=== PATIENT | female | born 1985 | race Caucasian/White ===

== ENCOUNTER 2020-05-18 10:32 | Outpatient (REF) | payer BC, SELFPAY | END 2020-05-18 10:33 | disposition home or self-care (01) | LOC: HO.LAB 10:32 | PROVIDERS: Visit Provider Internal Medicine | DX: Z20.828 Contact with and (suspected) exposure to other viral communicable diseases (principal) | CPT/HCPCS: C9803; U0003 ==

== ENCOUNTER 2021-01-26 15:47 | Outpatient (REF) | payer BC, SELFPAY ==
--- NOTE | ~2021-01-26 | XR_ITS ---
EXAMINATION: XR SINUSES CLINICAL INFORMATION: Sinus pressure COMPARISON: None TECHNIQUE: 4 views of the paranasal sinuses were obtained. FINDINGS: Frontal, ethmoid and sphenoid sinuses appear clear. There is a moderate opacification of the right maxillary sinus and mild to moderate opacification of the left maxillary sinus with some air fluid levels. Sella turcica is normal not enlarged. XR/XR sinus min 3V IMPRESSION: Opacification of the bilateral maxillary sinuses is suspected. Remainder of the paranasal sinuses are clear.
== END 2021-01-26 15:48 | disposition home or self-care (01) ==
LOC: HO.XRAY 15:47
PROVIDERS: PCP Internal Medicine; Visit Provider Internal Medicine
DX: J34.89 Other specified disorders of nose and nasal sinuses (principal)
CPT/HCPCS: 70220

== ENCOUNTER 2021-06-23 12:01 | Outpatient (REF) | payer BC, SELFPAY ==
[2021-06-23 13:08] LABS: Influenza A PCR NEGATIVE (Negative); Influenza B PCR NEGATIVE (Negative); Resp Syncy Virus RNA Qual PCR NEGATIVE (Negative); SARS COV2 PCR INHOUSE NEGATIVE (Negative)
== END 2021-06-23 12:02 | disposition home or self-care (01) ==
LOC: HO.LNP 12:01
PROVIDERS: Visit Provider Internal Medicine
DX: Z20.822 Contact with and (suspected) exposure to COVID-19 (principal); R19.7 Diarrhea, unspecified; R11.10 Vomiting, unspecified
CPT/HCPCS: 0241U

== ENCOUNTER 2021-12-24 14:39 | Outpatient (REF) | payer BC, OTHER, SELFPAY ==
--- NOTE | ~2021-12-24 | XR_ITS ---
EXAMINATION: XR WRIST, RIGHT CLINICAL INFORMATION: Injury 12/11/2021 COMPARISON: None TECHNIQUE: PA, lateral, and oblique and scaphoid views of the right wrist. FINDINGS: The bones and soft tissues are normal. No fracture. Alignment is anatomic with normal joint spaces. No erosions or abnormal soft tissue calcifications. XR/XR wrist RT min 3V IMPRESSION: Normal right wrist.
== END 2021-12-24 14:40 | disposition home or self-care (01) ==
LOC: HO.XRAY 14:39
PROVIDERS: PCP Internal Medicine; Visit Provider Internal Medicine
DX: S69.91XA Unspecified injury of right wrist, hand and finger(s), initial encounter (principal); X58.XXXA Exposure to other specified factors, initial encounter; Y93.9 Activity, unspecified; Y92.9 Unspecified place or not applicable; Y99.9 Unspecified external cause status
CPT/HCPCS: 73110

== ENCOUNTER 2025-06-16 12:58 | Outpatient (REF) | payer BC, SELFPAY ==
[2025-06-16 14:19] LABS: MANUAL DIFF FLAG NO
[2025-06-16 14:57] LABS: Hematocrit 41.6 % (37.0-47.0); Hemoglobin 13.9 g/dl (12.0-16.0); Imm Gran Abs Auto 0.03 X10*3/uL (0.00-0.03); Imm Gran Pct Auto 0.5 % (0.0-0.4); Lymphocytes Absolute Auto 2.1 X10*3/uL (1.2-4.9); Mean Corpuscular HGB Conc 33.4 g/dl (31.0-35.0); Mean Corpuscular Hemoglobin 29.9 pg (27.0-33.0); Mean Corpuscular Volume 89.5 fL (80.0-98.0); NRBC Abs Auto 0.000 X10*3/uL (0.0-0.012); NRBC Pct Auto 0.0 /100WBC (0.0-0.2); Platelet Count 302 X10*3/uL (160-400); Red Blood Count 4.65 X10*6/uL (4.20-5.50); White Blood Count 5.7 X10*3/uL (4.8-10.8)
--- OUTSIDE RECORDS SUMMARY | 2025-06-16 15:46 | XMS_ITS | Data Portability ---
Author Organization [facility], [facility] [place] [facility] Address [address] [place] [address] Care Team Providers Care Top Polisher Name Role Phone [facility] ([facility]) Primary Care Provide r Assessment No assessment recorded. Plan of Treatment Reminders Order Date Submit Date Provider Name Organization Details Last Modified By Last Modified Time Details Appointments RECHE CK 15 2025 08:45A M Patricia zhang PA-C Not available Not available Not available Lab None recor ded. Referral None recor ded. Procedures None recor ded. Surgeries None recor ded. Imaging MRI, lumba r spine , w/o contr ast 2024 14:50: 10 025 Patricia zhang PA-C [facility] ([place] [facility]) [address], [place], [address], Not Available 06/09/2025 17:02:01 XR, lumba r spine , 2 view 2024 14:20: 00 025 Ptaricia zhang PA-C [facility] [address], [place], [address], Not Available 06/04/2025 14:27:17 MedicationOrde rs Medro l (Nader) 4 mg table ts in a dose pack 2024 14:50: 50 [facility] [address] [place] [address], [facility], Ph [phone] Patricia Garcia PA-C Not available 06/04/2025 15:06:25 Take 1 dose pk by oral route as directed for 6 days, for back pain. VaccineOrders None recor ded. Patient TargetsNo targets recorded. Patient InstructionsNo instructions recorded. Reason for Referral None Reported. Results Created Date Observation Date Name Description Value Unit Range Abnormal Flag Specimen Type Note LastModifiedBy Organization Detail LastModifiedTime 06/04/2025 06/04/2025 lumbar spine 2 view [email or web address]=ybVtDzmBM3aTlfCPy6f%6FXMdxWatiu0tugi%0Hh0ZUv3 awEbpJ1eZiPFacuYy8AjJLAtXjvXTW6bQyZYrea03y6075GL4IwragPOnazFpTjoHzP Not Available [facility] , [address] , [facility], , 06/04/2025 14:27:18 06/04/2025 06/04/2025 lumbar spine 2 view [email or web address]=vjXmMwpAW0dQmqRYi4s%7ALSdbYfiib3trsi%8Na6ADg8 dxGgdX4yTpAAlouWf8InSFFyRliVDF4bYsVMtwz34a5431NI6SlszoYTgrePeQakKpS Not Available [facility] , [address],[facility] [address] [place] , [address], , 06/04/2025 14:27:19 06/07/2025 06/07/2025 MR, lumbar spine (C-) CPT 78448 [facility] cession Number: [id number] Patient Name: JOB PAULINO Date of : 1985 Date of Exam: 06-07-2025 Referring Physician: Patricia Garcia [address], [address] [place] [address] Exam: MR Lumbar Spine (C-) CPT 98978 Room Description: [facility] 3.0T MRI Lumbar Spine W/O Contrast INDICATION: Reason For Exam: M54.50 - Low back pain, unspecified, , MRI Lumbar spine- r/o disc herniation, Rule Out: disc herniation L-spine - TECHNIQUE: Multiplanar, multisequence MRI of the lumbar spine was performed without contrast. COMPARISON: None FINDINGS: LOCALIZER: No additional findings on limited localizer images. NUMBERING: The study assumes 5 ppj-ote-phzimmt lumbar type vertebral bodies. ALIGNMENT, VERTEBRAE, MARROW, AND DISCS: Alignment is normal. Vertebral body heights are preserved. No suspicious marrow signal. Loss of intervertebral disc space height and disc desiccation noted at L5-S1 CONUS: The conus is normal in signal and contour, with normal level of termination at L1-L2. PARASPINAL TISSUES: The paraspinal soft tissues are unremarkable. DETAILED FINDINGS BY LEVEL: T12-L1: No significant canal stenosis or neural foraminal narrowing. L1-L2: No significant canal stenosis or neural foraminal narrowing. L2-L3: No significant canal stenosis or neural foraminal narrowing. L3-L4: No significant canal stenosis or neural foraminal narrowing. L4-L5: No significant canal stenosis or neural foraminal narrowing. L5-S1: Broad-based disc bulge with small central disc herniation and bilateral facet arthrosis causing minimal bilateral neural foramina narrowing without significant spinal canal stenosis. IMPRESSION: Minimal degenerative changes at L5-S1. Otherwise essentially unremarkable lumbar spine MRI WSN: [id number] Ordering Physician: Patricia Garcia Electronically Signed By: Candelario ortiz PA-C [facility] ([facility]) , [address] [place] [address] , [address], [place] , 06/09/2025 17:08:02 Result Notes Documentation Provider Name and Address Organization Details Recorded Time Xr, Lumbar Spine, 2 View : [email or web address]? Encrypted=plYdZavGA9sTebB Uv6g%7HADvfEmfdg4wxxn%2Fg 2NLy1frArsC9hElWMquuXi1Pg MRCdZhiUPW3mDfAWcbi65q893 3VL2FyggwABommEcIzlUyR Not Available [facility] 06/04/2025 14:27:18 Xr, Lumbar Spine, 2 View : [email or web address] Encrypted=gdLkCtdIA7vEsdS Uv6g%4KPRrcElmsd5mzpb%2Fg 4SZf0jnXpfD0aCqWYqamOr6Mc OTMbLohNJN6gAoVRlnu19k615 7WR4DxeikFTexdTmPxjShD Not Available [facility] 06/04/2025 14:27:19 Mri, Lumbar Spine, W/o Contrast : [facility] Accession Number: [id number] Patient Name: JOB PAULINO Date of : 1985 Date of Exam: 06-07-2025 Referring Physician: Patricia Garcia [address] [place], [place] [address] [address] Exam: MR Lumbar Spine (C-) CPT 32321 Room Description: [facility] 3.0T MRI Lumbar Spine W/O Contrast INDICATION: Reason For Exam: M54.50 - Low back pain, unspecified, , MRI Lumbar spine- r/o disc herniation, Rule Out: disc herniation L-spine - TECHNIQUE: Multiplanar, multisequence MRI of the lumbar spine was performed without contrast. COMPARISON: None FINDINGS: LOCALIZER: No additional findings on limited localizer images. NUMBERING: The study assumes 5 jjt-cnz-cyqgjec lumbar type vertebral bodies. ALIGNMENT, VERTEBRAE, MARROW, AND DISCS: Alignment is normal. Vertebral body heights are preserved. No suspicious marrow signal. Loss of intervertebral disc space height and disc desiccation noted at L5-S1 CONUS: The conus is normal in signal and contour, with normal level of termination at L1-L2. PARASPINAL TISSUES: The paraspinal soft tissues are unremarkable. DETAILED FINDINGS BY LEVEL: T12-L1: No significant canal stenosis or neural foraminal narrowing. L1-L2: No significant canal stenosis or neural foraminal narrowing. L2-L3: No significant canal stenosis or neural foraminal narrowing. L3-L4: No significant canal stenosis or neural foraminal narrowing. L4-L5: No significant canal stenosis or neural foraminal narrowing. L5-S1: Broad-based disc bulge with small central disc herniation and bilateral facet arthrosis causing minimal bilateral neural foramina narrowing without significant spinal canal stenosis. IMPRESSION: Minimal degenerative changes at L5-S1. Otherwise essentially unremarkable lumbar spine MRI WSN: [id number] Ordering Physician: Patricia Garcia Electronically Signed By: Candelario Ramirez PA-C [address], [place], [address], [facility] 06/09/2025 17:08:02 Problems Name Problem SNOMED Code Status Onset Date Resolution Date Notes Provider Name and Address Organization Details Recorded Time Lower back injury 133490775 Active 025 Patricia ortiz PA-C [address], [place], [address] , [facility] 5 12:07:27 Acute back pain with sciatica 100427852 Active 025 Patricia ortiz PA-C [address], [place], [address] , [facility] 5 12:07:38 Problem Notes None recorded. Medical Equipment None Reported. Allergies No known drug allergies Medications Name Authored On Sig Start Date Stop Date Status Note Indication Fill Status Repeat Number Dispense Quantity LastModified by Organization Details LastModified Time benzo natat e 200 mg capsu le 5 14:04:11 TAKE 1 CAPS ULE BY CORNELL Zhang TIME S POLLO Y FOR 7 DAYS active Not Available Not availab le 0 Not Available Not Available memo - External Data Service - prod 06/04/2025 14:04:11 cyclo benza edmundo 5 mg table t 5 14:04:11 TAKE 1 TABL ET BY CORNELL Zhang TIME S POLLO Y FOR MUSC LE SPAS M active Not Available Not availab le 0 Not Available Not Available memo - External Data Service - prod 06/04/2025 14:04:11 ibupr ofen 600 mg table t 5 14:04:11 TAKE 1 TABL ET BY MOUT H 4 TIME S POLLO Y FOR PAIN active Not Available Not availab le 0 Not Available Not Available memo - External Data Service - prod 06/04/2025 14:04:11 lidoc tricia 5 % topic al patch 14:04:11 APPL Y ONE PATC H TOPI CALL Y TO ALLYSSA VELARDE LDER . LEAV E ON FOR 12 HOUR S THEN MARK VE. MUST WAIT AT LEAS T 12 HOUR S BEFO RE APPL XU PATC H(ES ) AGAI N. active Not Available Not availab le 0 Not Available Not Available memo - External Data Service - prod 06/04/2025 14:04:11 Pain Relie tiff (acet amino phen) 500 mg table t 14:04:11 TAKE 2 TABL ETS BY MOUT H EVER Y 8 HOUR S NEED ED FOR PAIN active Not Available Not availab le 0 Not Available Not Available memo - External Data Service - prod 06/04/2025 14:04:11 Medro l (Nader) 4 mg table ts in a dose pack 14:50:50 Take 1 dose pk by oral rout e as dire cted for 6 days , for back pain . complet ed Acute low back pain Not availab le 0 Not Available Patricia Garcia PA-C [address] [facility] [address], [place], [address], [facility] 06/04/2025 15:06:25 Vitals Date Recorded Body height Body mass index (BMI) Body weight Provider Name and Address Organization Details Last Updated DateTime 06/04/2025 154.94 cm 30.2 kg/m2 56669.78 g [place] [facility] 06/04/2025 14:22:28 Social History Social History Observation Description Date Observed Sex Unknown 06/04/2025 Legal Sex Female Status Not (finding) 06/16/20 25 No social history survey screeners recorded No social history SDOH screeners recorded Functional Status None recorded. No Functional Screening assessment recorded No Functional SDOH screeners recorded Mental Status None recorded. No Mental Screening assessment recorded No Mental SDOH screeners recorded Family History Nothing Reported. Medical History No medical history recorded. Gynecological HistoryNo gynecological history recorded. Obstetrics History GPAL:G 0 P 0 0 0 0 Past Encounters Encounter ID Performer Location Encounter Start Date Encounter Closed Date Diagnosis/Indication Diagnosis SNOMED-CT Code Diagnosis ICD10 Code Diagnosis IMO Codes Diagnosis Note [id number] Patricia ortiz PA-C [facility] [place] [address] [place] [address] 06/04/2025 14:05:51 06/09/2025 12:08:47 Acute low back pain 871314171 M54.50 [id number] Lower back injury 222765 005 S39.012A 666199103 Acute back pain with sciatica 345738029 M54.42 M54.41 [id number] Health Concerns Section Related Observation LastModified by Organization Detai ls LastModified Time None Recorded Concern Status LastModified by Organization Details LastModified Time None Recorded SDOH Concern Status LastModified by Organization Detai LastModified Time None Recorded Advance Directives Directive None Recorded Payers Insurance Date Sequence Insurance Name Policy Number Policy Gonzales Covered Member ID Gonzales Member ID Guarantor Name 06/16/2025 1 [facility] [id number] Ryan Paulino [id number] Job Paulino Notes Date Note Type Note Provider Name and Address Organization Details Recorded Time 06/04/2025 text/html ROS as noted in the HPI I am seeing the patient today under the supervision of Dr. Franco who was available but who did not see the patient. Orthopedic urgent care visit: HPI: 40-year-old female presents with chief complaint of low back pain. Has experienced multiple lumbar strains in the past but usually symptoms are self-limiting and resolved with ehsz-vds-ixtqska medications like Tylenol and ibuprofen. She has been experiencing pain now for about 2 weeks, symptoms are persistent and severe. She has difficulty bending, twisting, walking due to pain. She has tried Tylenol, ibuprofen, and Flexeril. She does report some pain and numbness radiating into the bilateral anterior thighs. She has tried some home stretching/home exercise program. She has done PT for this in the past. Past family, medical, social history and review of systems have been reviewed and updated on the medical history sheet saved to the patient's chart. Review of systems is negative except as noted above and/or on the medical history sheet. Examination: The patient is well appearing and in no apparent distress. Alert and oriented x3. Lumbar exam demonstrates 50% normal lumbar range of motion. She has tenderness throughout lumbar paraspinal musculature and midline. She is very guarded with bending and twisting. She has positive seated straight leg raise bilaterally. 5/5 strength throughout bilateral lower extremities with no focal neurologic deficits, sensation to light touch intact throughout. Neurovascularly intact. Peripheral vascular, lymphatic examination, skin, neurological, coordination, sensation are within normal limits unless otherwise noted above. X-rays ordered, obtained and reviewed at [facility] 2 views of the lumbar spine demonstrate degenerative disc space narrowing and anterior plate osteophyte formation noted at T11-T12, T12-L1, L1-L2 Impression: 40-year-old female with lumbar degenerative disc disease, lumbar strain Plan: Findings discussed with the patient. She has experienced repeated episodes of similar pain in the past that has been refractory to conservative treatment measures including PT and medications including Tylenol and NSAIDs. I recommend an MRI of the lumbar spine for further evaluation to rule out significant central or foraminal stenosis. For pain relief she would like to try Medrol Dosepak at this time. She is counseled regarding risks and appropriate use of this medication. She will follow up in 2 weeks for MRI review and further recommendations. Questions answered. [facility] speech recognition costume director software was used to create portions of this document. An attempt at proofreading has been made to minimize errors. Please call for corrections. Patricia Garcia PA-C [address] [place], [place] [address] [address] [address], [place], [address], [facility] 06/09/2025 12:08:45 Care Team Name Role Member ID Specialty Address Phone [facility] (ER) Primary Care Provider [address] [place] [address] OBGyn Episode No OBEpisode recorded.
[2025-06-16 15:47] LABS: Microalbum/Creatinine Ratio Ur 4.9 ug/mg cr (<30)
--- OUTSIDE RECORDS SUMMARY | 2025-06-16 15:47 | XMS_ITS | Continuity of Care Document ---
Author Organization [facility], [facility] [place] Address [address] [place] [address] Care Team Providers Care Detective Name Role Phone [facility] () Primary Care Provide r Assessment No assessment [...] , w/o contr ast 2024 14:50: 10 Sarah Brewer PA-C [facility] ([facility]) [address], [place], [address], Not Available 06/09/2025 17:02:01 XR, lumba r spine , 2 view 2024 14:20: 00 025 Patricia zhang PA-C [facility] [address], [place], [address], Not Available 06/04/2025 14:27:17 MedicationOrde rs Medro l (Nader) 4 mg table ts in a dose pack 2024 14:50: 50 [facility] [address] [place] [address], [facility], Ph [phone] Patricia Garcia PA-C Not available 06/04/2025 15:06:25 [...] LastModifiedTime 06/04/2025 06/04/2025 lumbar spine 2 view [email or web address]=izNsDqfDQ9dUlhNPw7j%0EIWitUipjv8dlff%8Qb9ALd1 mlZlbE3dAxRTbsnWx3EvYXFkBztSXS5vGgSVaky35y3833ZU9HamwpHDzjpQjJrgEiT Not Available [facility] , [address] , [address] [place] [address] , 06/04/2025 14:27:18 06/04/2025 06/04/2025 lumbar spine 2 view [email or web address]=jmFgFbjKJ5hQacUUu4j%5LQZvjZazdv3pama%9Zu3AYw5 ukEbkR7xWuIBfxgWk8CcOCDiHucPQK9tWvSWhym56f4391FC3PdkdlXEtfzXnNooFhH Not Available [facility] , [address],[facility] [address] , [place], [place] , [facility], , 06/04/2025 14:27:19 06/07/2025 06/07/2025 MR, lumbar spine (C-) CPT 59602 [facility] cession Number: [id number] Patient Name: JOB PAULINO Date of : 1985 Date of Exam: 06-07-2025 Referring Physician: Patricia Garcia [address], [address] [place] [address] Exam: MR Lumbar Spine (C-) CPT 07179 Room Description: [facility] 3.0T MRI Lumbar Spine W/O Contrast INDICATION: Reason For Exam: M54.50 - Low back pain, unspecified, , MRI Lumbar spine- r/o disc herniation, Rule Out: disc herniation L-spine - TECHNIQUE: Multiplanar, multisequence MRI of the lumbar spine was performed without contrast. COMPARISON: None FINDINGS: LOCALIZER: No additional findings on limited localizer images. NUMBERING: The study assumes 5 dzb-ixu-fvemoih lumbar type vertebral bodies. ALIGNMENT, VERTEBRAE, MARROW, [...] Otherwise essentially unremarkable lumbar spine MRI WSN: [id number] Ordering Physician: Patricia Garcia Electronically Signed By: Candelario ortiz PA-C [facility] ([facility]) , [address] [place] [address] , [address], [place] , 06/09/2025 17:08:02 Result Notes Documentation Provider Name and Address Organization Details Recorded Time Xr, Lumbar Spine, 2 View : [email or web address] Encrypted=wlVwSiuTY3kOezT Uv6g%1WTRosIpshr9qwhm%2Fg 0CMf8odNwtO2dOlFOiehQd6Oe OLDmJhlCOH2mPcGVnea56r904 8BU3FmjqeUTbebVlEnjPeX Not Available [facility] 06/04/2025 14:27:18 Xr, Lumbar Spine, 2 View : [email or web address] Encrypted=osZpDljVG8uMxlZ Uv6g%7XKUlnOobtj0yrzi%2Fg 2PDw2jdIsxG7uRlSSufsZv9Lm LVVvEjjFFL9rIvDNezq48j076 1GB1GdirtJMrcnRuPrkBaR Not Available [facility] 06/04/2025 14:27:19 Mri, Lumbar Spine, W/o Contrast : [facility] Accession Number: [id number] Patient Name: JOB PAULINO Date of : 1985 Date of Exam: 06-07-2025 Referring Physician: Patricia Garcia [address] [place], [place] [address] [address] Exam: MR Lumbar Spine (C-) CPT 33234 Room Description: [facility] 3.0T MRI Lumbar Spine W/O Contrast INDICATION: Reason For Exam: M54.50 - Low back pain, unspecified, , MRI Lumbar spine- r/o disc herniation, Rule Out: disc herniation L-spine - TECHNIQUE: Multiplanar, multisequence MRI of the lumbar spine was performed without contrast. COMPARISON: None FINDINGS: LOCALIZER: No additional findings on limited localizer images. NUMBERING: The study assumes 5 oyl-mfh-lktswcg lumbar type vertebral bodies. ALIGNMENT, VERTEBRAE, MARROW, [...] Otherwise essentially unremarkable lumbar spine MRI WSN: [id number] Ordering Physician: Patricia Garcia Electronically Signed By: Candelario Ramirez PA-C [address], [place], [address], [facility] 06/09/2025 17:08:02 Problems Name Problem SNOMED Code Status Onset Date Resolution Date Notes Provider Name and Address Organization Details Recorded Time Lower back injury 303350484 Active 025 Patricia ortiz PA-C [address], [place], [address] , [facility] 5 12:07:27 Acute back pain with sciatica 118872356 Active 025 Patricia ortiz PA-C [address], [place], [address] , [facility] 12:07:38 Problem Notes None recorded. Medical Equipment [...] 0 Not Available Patricia Garcia PA-C [address] [facility] [address], [place], [address], [facility] 06/04/2025 15:06:25 Vitals Date Recorded Body height Body mass index (BMI) Body weight Provider Name and Address Organization Details Last Updated DateTime 06/04/2025 154.94 cm 30.2 kg/m2 93842.78 g [place] [facility] 06/04/2025 14:22:28 Social History [...] ICD10 Code Diagnosis IMO Codes Diagnosis Note [id number] Patricia ortiz PA-C [facility] [place] [address] [place] [address] 06/04/2025 14:05:51 06/09/2025 12:08:47 Acute low back pain 047463085 M54.50 5663546659 Lower back injury 942972 005 S39.012A 406429488 Acute back pain with sciatica 017191115 M54.42 M54.41 [id number] Health Concerns Section Related Observation LastModified by Organization Detai ls LastModified Time None Recorded Concern Status LastModified by Organization Details LastModified Time None Recorded SDOH Concern Status LastModified by Organization Detai ls LastModified Time None Recorded Payers Encounter Date Sequence Insurance Name Policy Number Policy Gonzales Covered Member ID Gonzales Member ID Guarantor Name 06/04/2025 1 [facility] [id number] Ryan Paulino [id number] Job Paulino Notes Date Note Type [...] usually symptoms are self-limiting and resolved with lsqn-rmf-pulpurr medications like Tylenol and ibuprofen. She has [...] above. X-rays ordered, obtained and reviewed at [facility] 2 views of the lumbar spine demonstrate [...] MRI review and further recommendations. Questions answered. [facility] speech recognition wig maker software was used to create portions of this document. An attempt at proofreading has been made to minimize errors. Please call for corrections. Patricia Garcia PA-C [address] [place], [place] [address], [place], [address], [facility] 06/09/2025 12:08:45 Care Team Name Role Member ID Specialty Address Phone [facility] ([facility]) Primary Care Provider [address] [place] [address] OBGyn Episode No OBEpisode recorded.
[2025-06-16 15:50] LABS: Alanine Aminotransferase 29 U/L (0-31); Albumin Level 4.7 g/dL (3.5-5.0); Alkaline Phosphatase 48 U/L (39-117); Anion Gap 11 (12-20); Aspartate Amino Transferase 28 U/L (5-31); Blood Urea Nitrogen 13 mg/dL (9-16); Calcium 9.6 mg/dL (8.4-10.2); Carbon Dioxide 26 mmol/L (22-29); Chloride 108 mmol/L (96-108); Cholesterol 268 mg/dL (<200); Estimated Glomerular Filt Rate > 60; HDL Cholesterol 51 mg/dL (>40); Potassium 3.9 mmol/L (3.3-5.1); Sodium 141 mmol/L (135-145); Total Protein 7.6 g/dL (6.5-8.0); Triglycerides 325 mg/dL (<150)
[2025-06-17 07:41] LABS: Syphilis Screen Nonreactive (Nonreactive)
[2025-06-17 08:53] LABS: HBS Num1 0.00 mIU/mL (0-7.99); HBc Num1 0.07 S/CO (0.00-0.79); HBsAGNum1 0.31 S/CO (0.00-0.99); HIV Num 1 0.05 S/CO (0.00-0.99); Hepatitis A Antibody IgM 0.21 Index (0-0.79); Hepatitis B Surface Antigen Negative (Negative); ~HepC Num1 0.32 S/CO (0.00-0.79); ~Hepatitis A Antibody IgM Nonreactive (Nonreactive); ~Hepatitis B Surface Antibody NONREACTIVE (Nonreactive); ~Hepatitis C Antibody Nonreactive (Nonreactive)
== END 2025-06-16 12:59 | disposition home or self-care (01) ==
LOC: HO.LAB 12:58
PROVIDERS: PCP Student in an Organized Health Care Education/Training Program; Visit Provider Student in an Organized Health Care Education/Training Program
DX: F32.2 Major depressive disorder, single episode, severe without psychotic features (principal); F41.1 Generalized anxiety disorder; G89.29 Other chronic pain; M54.50 Low back pain, unspecified; Z00.00 Encounter for general adult medical examination without abnormal findings; Z13.31 Encounter for screening for depression; Z13.39 Encounter for screening examination for other mental health and behavioral disorders; Z13.6 Encounter for screening for cardiovascular disorders; Z13.1 Encounter for screening for diabetes mellitus
CPT/HCPCS: 36415; 80053; 80061; 82043; 82306; 82570; 83036; 84443; 85025; 86704; 86706; 86709; 86780; 86803; 87340; 87389; 96127

== ENCOUNTER 2025-06-16 12:58 | Outpatient (AMB) | payer BC, SELFPAY ==
--- NOTE | 2025-06-16 13:00 | A.OFFPC_ITS ---
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: No Accompanied by: Self / Same As Patient Allergies No Known Allergies (No Known Allergies*) Allergy (Verified 06/16/25 13:00) Medication List - Last Reconciled 06/16/25 by Stevie Gamez MD buspirone 5 mg PO ONCE PRN Tobacco use date assessed: 06/16/25 Dental Screening Dental Screen Date: 06/16/25 Did you have a dental visit in the last 12 months?: No Did you have a dental problem in the last 6 months where you did not have access to dental care?: No HPI HPI Comments History of Present Illness Details History of Present Illness The patient is a 40-year-old female presenting for a new patient visit and annual physical. She reports a history of depression and anxiety, for which she has a prescription for buspirone that she uses rarely. She resumed taking it after starting a new job in August but had not used it for a while prior. Previously, she was on Effexor (venlafaxine) but became immune to it and experienced severe withdrawal symptoms during the weaning process. She also reports daily headaches since she was young, which she notes improved when she was taking her anxiety medication. The patient also has a history of intermittent back pain for approximately eight years, which has become aggressively worse over the last two months, and she is still in pain. A recent orthopedic evaluation included an X-ray that showed arthritis in her upper back, though her pain is in the lower back. An MRI of her lumbar spine revealed degenerative changes at L5-S1 with disc herniation and nerve compression. She tried cyclobenzaprine from an urgent care visit without relief, finding it only caused somnolence. Past medical history also includes a history of hepatitis C which she states is always positive but not transmissible, and an old ankle injury from an accident that is prone to twisting. She has not had a Pap smear since her son was born seven years ago and does not have a communications electrician supervisor. The patient reports occasional constipation. Medical History: - Depression: Previously treated with Ef fexor (venlafaxine) with subsequent development of tolerance and severe withdrawal symptoms on discontinuation. - Anxiety: Has a prescription for buspir one, used infrequently. - Chronic back pain: For 8 years, worsen ed recently. - Chronic daily headaches: Since childho od. - Hepatitis C: Patient reports positive tests without transmissible virus. - History of ankle injury: Resulting in ankle instability. Surgical History: - Tonsillectomy Medications: - Buspirone: Taken as needed for anxiety . - Cyclobenzaprine: Tried for back pain b ut was not helpful. - Ibuprofen: Taken as needed for pain. Family History: - Grandfather had diabetes. Diagnostic Results: - Imaging: - Upper back X-ray: Showed arthritis. - Lumbar MRI: Showed degenerative change s between L5 and S1, with disc herniation and some nerve compression. - Screening: - PHQ-9: Score of 19, indicative of mart re depression. - JOSEPH-7: Score indicates significant anx iety. Social History - Tobacco: Smokes socially, not regularl y. - Alcohol: Drinks 2-3 times per week, ty pically 1-2 drinks per occasion, but reports binge drinking of 6 or more drinks on weekends. - Illicit Drugs: Denies use of heroin, m arijuana, or cocaine. - Employment: Started a new job in August . - Functional Status: Has been out of wor k since the week before Marielena due to back pain. - Social Support: Reports being safe at home. - Family: Has a 7-year-old son. 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 1. Little interest or pleasure in doing things: several days 2. Feeling down, depressed, or hopeless: several days 3. Trouble falling or staying asleep, or sleeping too much: nearly every day 4. Feeling tired or having little energy: more than half the days 5. Poor appetite or overeating: more than half the days 6. Feeling bad about yourself - or that you are a failure or have let yourself or your family down: not at all 7. Trouble concentrating on things, such as reading the newspaper or watching television: nearly every day 8. Moving or speaking so slowly that other people could have noticed. Or the opposite - being so fidgety or restless that you have been moving around a lot more than usual: more than half the days 9. Thoughts that you would be better off or of hurting yourself in some way: not at all Total score: 14 Depression Screening Interpretation: Positive Depression Screening Done: Yes 15285 - PHQ-9 Billing: Yes Source: Developed by Drs. James Dover, Carmen Santiago, eDnny Navarro and colleagues, with an educational desirae from [employer]. Thrive Questionnaire Date Thrive assessed: 06/16/25 I am a: Patient What is your living situation today?: I have a steady place to live Within the past 12 months, did the food you bought not last and you didn't have the money to get more?: Never true Within the past 12 months, did you worry whether your food would run out before you got money to buy more?: Never true Do you have trouble paying for medicines?: No Do you have trouble getting transportation to medical appointments?: No Do you have trouble paying your heating and electricity bill?: No Do you have trouble taking care of your child, family member or friend?: No Do you have trouble with day-to-day activities such as bathing, preparing meals, shopping, managing finances, etc.?: No Are you currently unemployed and looking for a job?: No Are you interested in more education?: No THRIVE Score: 0 AUDIT C Alcohol Use Questionnaire (AUDIT-C) 1. How often do you have a drink containing alcohol?: 2-3 times a week 2. How many drinks containing alcohol do you have on a typical day when you are drinking?: 1 or 2 3. How often do you have six or more drinks on one occasion?: Less than monthly Total Score: 4 Score Reviewed/Action Taken: Yes JOSEPH-7 AMB Questionnaire JOSEPH-7 Date JOSEPH - 7 assessed: 06/16/25 Feeling nervous, anxious, or on edge: 3 = Nearly every day Not being able to stop or control worryin = Nearly every day Worrying too much about different things: 3 = Nearly every day Trouble relaxin = Nearly every day Being so restless that it is hard to sit still: 3 = Nearly every day Becoming easily annoyed or irritable: 3 = Nearly every day Feeling afraid as if something awful might happen: 2 = More than half the days Total JOSEPH-7 score (0-4 normal; 5-9 mild; 10-14 moderate; 15-21 severe): 20 Source: Developed by Drs. James Dover, Carmen Santiago, Denny Navarro and colleagues, with an educational desirae from [employer]. JOSEPH-7 Assessment Billing JOSEPH-7 Assessment Tool: JOSEPH-7 Assessment 69345 Review of Systems Narrative Review of Systems - Constitutional: Denies nausea or vomiting. - Cardiovascular: Denies chest pain. - Respiratory: Denies shortness of breath. - Gastrointestinal: Reports occasional constipation but otherwise normal bowel movements. - Genitourinary: Reports normal urination. - Musculoskeletal: Reports aggressive lower back pain for the past two months. - Neurological: Reports daily headaches. - Eyes: Denies vision changes. - Psychiatric: Endorses symptoms of depression and anxiety. All systems reviewed & are unremarkable except as reviewed in HPI and above Physical exam (Primary Care) Vital Signs: Last Vital Signs Temp 96.8 F 06/16/25 13:01 Pulse 76 06/16/25 13:01 Resp 16 06/16/25 13:01 BP 120/76 06/16/25 13:01 Pulse Ox 97 06/16/25 13:01 Oxygen Delivery Method Room Air 06/16/25 13:01 BMI result Body Mass Index 29.7 Tobacco/Smoking Status: Tobacco use Status Tobacco use date assessed 06/16/25 06/16/25 13:08 Patient Tobacco Use Status Former Tobacco user 06/16/25 13:08 e-Cigarette/Vaping Use Former Use 06/16/25 13:08 PHQ-9: PHQ-9 Score PHQ-9: Total score 14 06/16/25 13:19 Depression Screening Interpretation: Positive Thrive Assessment: Date of Thrive Assessment Date Thrive assessed 06/16/25 06/16/25 13:19 Narrative Physical Exam General: Alert and oriented, Well nourished, No acute distress. Eye: Pupils are equal, round and reactive to light, Intact accommodation, Extraocular movements are intact, Normal conjunctiva, Vision unchanged. HENT: Normocephalic, Atraumatic, Tympanic membranes are clear, Normal hearing, Oral mucosa is moist, No pharyngeal erythema, Ear canals patent. Respiratory: Lungs CTA bilaterally, No wheeze, Respirations are non-labored. Cardiovascular: Regular rate, Regular rhythm, S1 auscultated, S2 auscultated, No murmur, Good pulses equal in all extremities, Normal peripheral perfusion, No edema. Gastrointestinal: Soft, Non-tender, Non-distended, Normal bowel sounds, No organomegaly. Musculoskeletal: Normal range of motion, Normal strength, No tenderness, No swelling, No deformity, Normal gait. Integumentary: Warm, Dry, [place], Intact. Neurologic: Alert, Oriented, Normal sensory, Normal motor function, No focal defects, Cranial Nerves II-XII are grossly intact, Normal deep tendon reflexes. Psychiatric: Cooperative, Appropriate mood & affect, Normal judgment. Coding Level of Care Code New Pt Level 3 (64686) New Pt Prev Care 18-39yr(24224 Diagnoses Current severe episode of major depressive disorder without psychotic features without prior episode F32.2 Major depression recurrence: single episode Active/Remission status: currently active Major depression episode severity: severe Psychotic features: without psychotic features JOSEPH (generalized anxiety disorder) F41.1 Chronic bilateral low back pain without sciatica M54.50; G89.29 Chronicity: chronic Back pain laterality: bilateral Sciatica presence: without sciatica Alcohol use F10.90 Annual physical exam Z00.00 Additional Codes JOSEPH-7 Assessment Billing - JOSEPH-7 Assessment Tool: JOSEPH-7 Assessment 16678 ([id number]) PHQ-9 - 19177 - PHQ-9 Billing: Yes ([id number]) Comment [id number] Assessment & Plan Assessment & Plan (1) Major depressive disorder: Comment: - Patient scored 19 on PHQ-9, indicating severe depression. - Plan to start sertraline 25 mg every morning. - Patient educated that the medication may take 6-8 weeks to become effective. - Placed referral to psychiatry for comprehensive management. Code(s): F32.9 - Major depressive disorder, single episode, unspecified Category: Medical Qualifiers: Major depression recurrence: single episode Active/Remission status: currently active Major depression episode severity: severe Psychotic features: without psychotic features Qualified Code(s): F32.2 - Major depressive disorder, single episode, severe without psychotic features (2) JOSEPH (generalized anxiety disorder): Comment: - Patient has a history of anxiety and uses buspirone on an as-needed basis, which is not providing adequate control. - Patient reports headaches are associated with anxiety and improve with medication. - Plan to take buspirone 5 mg twice daily on a scheduled basis instead of as-needed. Code(s): F41.1 - Generalized anxiety disorder Category: Medical (3) Low back pain: Comment: - Patient presents with aggressive lower back pain, confirmed by MRI to be secondary to L5-S1 degenerative disc disease with herniation and nerve compression. - A trial of cyclobenzaprine was not effective. - Plan to prescribe gabapentin 100 mg to be taken up to three times a day as needed for pain. - Patient also advised she can continue using ibuprofen and Tylenol as needed. - Referral to orthopedics has been placed. Code(s): M54.50 - Low back pain, unspecified Category: Medical Qualifiers: Chronicity: chronic Back pain laterality: bilateral Sciatica presence: without sciatica Qualified Code(s): M54.50 - Low back pain, unspecified; G89.29 - Other chronic pain (4) Alcohol use: Comment: - Patient reports drinking 2-3 times per week, with occasional weekend episodes of consuming 6 or more drinks. - Counseled the patient that this level of intake is considered unsafe. - Advised limiting alcohol consumption to 1-2 drinks per occasion and avoiding binge episodes. Code(s): F10.90 - Alcohol use, unspecified, uncomplicated Category: Social Hx (5) Annual physical exam: Comment: - The patient is overdue for a Pap smear, having not had one in seven years. - A referral will be placed to a communications electrician supervisor. - Annual lab work, including a CBC, electrolytes, sugar screen, hepatitis panel, HIV test, cholesterol panel, and urinalysis, will be ordered. - The patient declined a flu shot today. Code(s): Z00.00 - Encounter for general adult medical examination without abnormal fi ndings Category: Medical Plan: Health Maintenance: - Cervical Cancer Screening: Patient has not had a Pap smear in 7 years. - A referral will be placed to a communications electrician supervisor. - Laboratory Screening: Ordered annual labs including a complete blood count, metabolic panel, cholesterol screen, hepatitis panel, HIV screen, and urinalysis. - Immunizations: Patient was offered a flu shot and declined. - Substance Use Counseling: Discussed unsafe alcohol intake, including binge drinking, and advised patient to limit consumption to 1-2 drinks per sitting. Patient was informed and verbally consented to the use of an ambient scribe for clinic note documentation during this visit. Vital signs reviewed. Comprehensive history, review of systems, and physical exam completed. Medications, allergies, and problem list reviewed and updated. Counseling provided on nutrition, regular exercise, sleep hygiene, and moderation of alcohol use. Discussed age-appropriate screenings (mammogram, colonoscopy, Pap, bone density) and immunizations (flu, COVID, shingles, Tdap). Screened for depression, fall risk, and home safety; no current concerns. Discussed stress management, dental and vision care, and importance of ongoing preventive follow-up. Routine labs ordered for metabolic and lipid screening. Patient educated on healthy lifestyle and agrees with the plan. Plan I had a detailed discussion with the patient about her new diagnoses of severe depression and significant anxiety, as evidenced by her screening questionnaire scores. We discussed her past negative experience with Effexor and her apprehension about starting new antidepressant medications. I explained the plan to start a new medication, sertraline, and advised it could take 6-8 weeks to become effective. I also instructed her to take her buspirone on a scheduled twice-daily basis rather than as needed to achieve better baseline anxiety control. I stressed the importance of follow-up and placed a referral to psychiatry for expert management. Regarding her back pain, I reviewed her MRI findings, which show disc herniation and nerve compression at L5-S1. Since cyclobenzaprine was not helpful, I prescribed gabapentin for neuropathic pain and explained it may cause some drowsiness. An orthopedic referral was also placed for further evaluation. I counseled the patient on her unsafe alcohol use, particularly the episodes of binge drinking, and advised reducing her intake. We addressed health maintenance, including the need for a Pap smear, and a referral to gynecology was placed. I ordered comprehensive lab work and advised the patient to follow up in three months. Orders: Orders Comprehensive Met. Panel Today Z00.00 - Encounter for general adult medical examination without abnormal findings Hemoglobin A1c Today Z00.00 - Encounter for general adult medical examination without abnormal findings Lipid Panel Today Z00.00 - Encounter for general adult medical examination without abnormal findings Microalbumin, Random (w Creat) Today Z00.00 - Encounter for general adult medical examination without abnormal findings Syphilis Screen Today Z00.00 - Encounter for general adult medical examination without abnormal findings TSH reflex Free T4 Today Z00.00 - Encounter for general adult medical examination without abnormal findings Hepatitis C Antibody Reflex Today Z00.00 - Encounter for general adult medical examination without abnormal findings Complete Blood Count Auto Diff Today Z00.00 - Encounter for general adult medical examination without abnormal findings Hepatitis A,B,C Profile Today Z00.00 - Encounter for general adult medical examination without abnormal findings HIV Ab/Ag Today Z00.00 - Encounter for general adult medical examination without abnormal findings Vitamin D 25-OH Total Today Z00.00 - Encounter for general adult medical examination without abnormal findings Referrals Orthopedics Referral M54.9 - Dorsalgia, unspecified Psychiatry Referral F41.8 - Other specified anxiety disorders COMMUNITY AFFAIRS DIRECTOR Referral Z01.419 - Encounter for gynecological examination (general) (routine) without abnormal findings Medications: New gabapentin 100 mg PO TID 90 caps 0RF buspirone 5 mg PO BID 60 tabs 3RF sertraline 25 mg PO DAILY 90 tabs 0RF Patient Instructions: - Start taking Sertraline 25 mg once every morning for depression. - Please be aware that this medication may take 6 to 8 weeks to show its full effect. - Take Buspirone 5 mg twice a day (morning and evening) for anxiety. - Take Gabapentin 100 mg up to three times a day as needed for your back pain. - This may make you feel sleepy. - You can continue to take ibuprofen or Tylenol as needed for pain. - Please get your blood work done at the lab. - You will be contacted by the psychiatrist's office and a communications electrician supervisor's office to schedule appointments. - It is recommended to reduce your alcohol intake, especially avoiding drinking 6 or more drinks in one sitting. - We have put in a referral for you to see an orthopedics specialist for your back. - Please schedule a follow-up appointment to see us again in three months.
[2025-06-16 13:01] VITALS: BP 120/76; PULSE 76; RESP 16; TEMP 36; O2SAT 97; BMI 29.7
--- OUTSIDE RECORDS SUMMARY | 2025-06-16 14:51 | XMS_ITS | Clinical Summary ---
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 Name Role Phone Unavailable Primary Care Provider Unavailabl e Surgical History Surgery Date Site/Laterality Comments TONSILLECTOMY PROCEDURE: HISTORICAL TONSILLECTOMY Medical History Medical History Date Comments History of ovarian cyst DX:Histo ry of ovarian cyst Anxiety and depression DX:Anxiet y and depression Family History Medical History Relation Name Comments Breast cancer Aunt Paternal Rheum arthritis Mother Relation Name Status Comments Aunt Paternal Brother 1 Alive Brother 2 Alive Brother 3 Alive Father Alive Mother Alive Sister 1 Alive Sister 2 Alive Social History Tobacco Use Types Packs/Day Years Used Date Smoking Tobacco: Never Smokeless Tobacco: Never Alcohol Use Standard Drinks/Week Comments Yes 0 (1 standard drink = 0.6 oz pur e alcohol) Comments Unknown Sex and Gender Information Value Date Recorded Sex Assigned at Not on file Legal Sex Female 11:05 AM EDT Gender Identity Not on file Sexual Orientation Not on file Last Filed Vital Signs Vital Sign Reading Time Taken Comments Blood Pressure 114/70 10/09/2023 10:07 AM EDT Pulse 72 10/09/2023 10:07 AM EDT Temperature - - Respiratory Rate - - Oxygen Saturation - - Inhaled Oxygen Concentration - - Weight 78.9 kg (173 lb 14.4 oz) 024 10:07 AM EDT Height 156.2 cm (5' 1.5 ) 10/09/2023 10 :07 AM EDT Body Mass Index 32.33 10/09/2023 10:07 AM EDT Plan of Treatment Health Maintenance Due Date Last Done Comments DTaP,Tdap,and Td Vaccines (1 - Tdap) 2006 Hepatitis B Vaccines (1 of 3 - 19+ 3-dose series) 2006 HPV Vaccines (1 - 3-dose SCD M series) 2014 HIV Screening 01/09/2024 Hepatitis C Screening 01/09/2024 Social Influencers of Health Screening 01/09/2024 Depression Screening 06/19/2024 COVID-19 Vaccine (1 - 2024-2 6 season) 2025 Influenza Vaccine (#1) 2025 Cervical Cancer Screening: P ap Smear 10/08/2026 10/09/2023 RSV Immunization Adult Patie nts (1 - 1-dose 75+ series) 2062 HIB Vaccines Aged Out No longer eligi ble based on patient's age to complete this topic Hepatitis A Vaccines Aged Out No long er eligible based on patient's age to complete this topic IPV Vaccines Aged Out No longer eligi ble based on patient's age to complete this topic MMR Vaccines Aged Out No longer eligi ble based on patient's age to complete this topic Meningococcal ACWY Vaccine Aged Out N o longer eligible based on patient's age to complete this topic Meningococcal B Vaccine Aged Out No l onger eligible based on patient's age to complete this topic Pneumococcal Vaccine: Pediat rics (0 to 5 Years) and At-Risk Patients (6 to 49 Years) Aged Out No longer eligi ble based on patient's age to complete this topic RSV Immunization Patients Un fermín 20 months Aged Out No longer eligible b ased on patient's age to complete this topic Varicella Vaccines Aged Out No longer eligible based on patient's age to complete this topic Procedures Procedure Name Priority Date/Time Associated Diagnosis Comments PAP SMEAR Routine 10/09/2023 from Last 3 Months or Most Recently Relevant to Health Maintenance Results * Pap smear (10/09/2023) 10/09/2023 Narrative HISTORICAL TESTING LAB RESULTING AGENCY - 10/11/2023 3:31 PM EDT [id number] THINPREP PAP, IMAGED: NEGATIVE FOR SQUAMOUS INTRAEPITHELIAL LESION AND MALIGNANCY PAKO MEIER(ASCP) (CASE ELECTRONICALLY SIGNED 10 11 2023) RESULT OF APTIMA HIGH RISK HPV ASSAY: HIGH RISK HPV: NEGATIVE (SEROTYPES 16,18,31,33,35,39,45,51,52,56,58,59,66,68) COMPLETED ON 2023-10-11 ADEQUACY: SATISFACTORY ENDOCERVICAL/TRANSFORMATION ZONE COMPONENT PRESENT. SOURCE: THINPREP PAP HPV ANY DX: REFLEX 16 AND 18, CERVICAL, IMAGED CLINICAL INFORMATION: HPV ANY DIAGNOSIS. HORMONES, [Z01.419] us [facility] ORDERABLES Final Result HISTORICAL TESTING LAB RESULTING AGENCY from Last 3 Months or Most Recently Relevant to Health Maintenance
== END 2025-06-16 13:28 | disposition home or self-care (01) ==
LOC: HO.HMCHD 12:58
PROVIDERS: PCP Student in an Organized Health Care Education/Training Program; Visit Provider Student in an Organized Health Care Education/Training Program
DX: Z00.00 Encounter for general adult medical examination without abnormal findings (principal); F32.2 Major depressive disorder, single episode, severe without psychotic features; F41.1 Generalized anxiety disorder; M54.50 Low back pain, unspecified; F10.90 Alcohol use, unspecified, uncomplicated